=== PATIENT | male | born 1985 | race African-American/Black ===

== ENCOUNTER 2017-07-29 23:45 | Emergency (ER) | payer MEDICAID ==
[~2017-07-29] VITALS: Ht 188 cm; Wt 100.0 kg
[~2017-07-29 23:45] MED LIST: VIC
[2017-07-30] MEDS ORDERED: KETOROLAC 60MG/2ML VIAL IM ONE (01:15)
[2017-07-30 01:24] VITALS: BP 142/81
== END 2017-07-30 01:27 | disposition home or self-care (01) ==
LOC: ER 23:45
DX: S01.81XA Laceration without foreign body of other part of head, initial encounter (principal); W22.8XXA Striking against or struck by other objects, initial encounter; Y93.67 Activity, basketball; Y92.89 Other specified places as the place of occurrence of the external cause; M32.9 Systemic lupus erythematosus, unspecified; J45.909 Unspecified asthma, uncomplicated; M35.00 Sjogren syndrome, unspecified
CPT/HCPCS: 96372; 99283; J1885; Z7610

== ENCOUNTER 2018-12-30 17:32 | Emergency (ER) | payer MEDICAID ==
[~2018-12-30] VITALS: Ht 170.2 cm; Wt 70.0 kg
[2018-12-30] MEDS ORDERED: HYDROCODONE/ACETAMINOPHEN 5/325MG TABLET PO ONE (22:45)
[2018-12-31] MEDS ORDERED: KETOROLAC 30MG/ML VIAL IM ONE
[2018-12-31 00:28] VITALS: BP 136/78
== END 2018-12-31 00:29 | disposition home or self-care (01) ==
LOC: ER 17:32
DX: S30.0XXA Contusion of lower back and pelvis, initial encounter (principal); S10.93XA Contusion of unspecified part of neck, initial encounter; J45.909 Unspecified asthma, uncomplicated; V49.49XA Driver injured in collision with other motor vehicles in traffic accident, initial encounter; Y93.89 Activity, other specified; Y92.89 Other specified places as the place of occurrence of the external cause; Y99.8 Other external cause status
CPT/HCPCS: 71045; 72040; 72100; 96372; 99283; J1885; Z7610

== ENCOUNTER 2019-03-01 12:15 | Emergency (ER) | payer MEDICAID ==
[~2019-03-01] VITALS: Ht 188 cm; Wt 91.0 kg
[2019-03-01] MEDS ORDERED: LIDOCAINE HCL 1% 20ML VIAL (Pyxis) INJ INFIL ONE (14:30)
[2019-03-01] MEDS ORDERED: BACITRACIN ZINC OINT UDPKT TOP ONE (14:30)
[2019-03-01 16:07] VITALS: BP 128/86
== END 2019-03-01 15:24 | disposition home or self-care (01) ==
LOC: ER 12:15
DX: S81.811A Laceration without foreign body, right lower leg, initial encounter (principal); S81.812A Laceration without foreign body, left lower leg, initial encounter; J45.909 Unspecified asthma, uncomplicated; V19.49XA Pedal cycle driver injured in collision with other motor vehicles in traffic accident, initial encounter; Y93.19 Activity, other involving water and watercraft; Y92.89 Other specified places as the place of occurrence of the external cause; Y99.8 Other external cause status; M35.00 Sjogren syndrome, unspecified; M32.9 Systemic lupus erythematosus, unspecified
CPT/HCPCS: 12002; 99284; J3490

== ENCOUNTER 2023-09-25 20:55 | Emergency (ER) | payer MEDICAID, OTHER ==
[~2023-09-25] VITALS: Ht 188 cm; Wt 91.0 kg
[2023-09-25 22:18] VITALS: TEMP 98.2; O2SAT 98
[2023-09-25 23:01] VITALS: BP 139/93; PULSE 99; RESP 14
[2023-09-25] MEDS ORDERED: IBUPROFEN 600MG TABLET PO STA (23:01)
[2023-09-25] MEDS ORDERED: LIDOCAINE HCL/PF 1% 10 MG/ML 5ML VIAL INFIL ONE (23:15)
[2023-09-25] MEDS ORDERED: BACITRACIN ZINC OINT UDPKT TOP ONE (23:15)
[2023-09-25 23:40] LABS: BASOPHILS % 0.4 % (0.0-2.0); EOSINOPHILS % 0.7 % (0.0-5.0); HEMATOCRIT. 46.1 % (42.0-52.0); HEMOGLOBIN. 14.9 g/dL (14.0-18.0); LYMPHOCYTES % 32.5 % (20.0-50.0); MEAN CORPUSCULAR HEMOGLOBIN 29.5 pg (28.0-32.0); MEAN CORPUSCULAR HGB CONC 32.4 g/dL (31.0-37.0); MEAN CORPUSCULAR VOLUME 91.1 fL (80.0-94.0); MEAN PLATELET VOLUME 10.1 fl (7.4-10.4); NEUTROPHILS % 52.4 % (40.0-76.0); PLATELET 205 x1000/uL (130-400); RED BLOOD CELL COUNT 5.06 mill/uL (4.7-6.1); WHITE BLOOD COUNT 5.8 x1000/uL (4.5-11.0)
[2023-09-26 00:10] LABS: ALANINE AMINOTRANSFERASE 22 IU/L (10-49); ALBUMIN 4.5 g/dL (3.2-4.8); ASPARTATE AMINOTRANSFERASE 27 IU/L (<34); BILIRUBIN TOTAL 0.7 mg/dL (0.1-1.0); CALCIUM 9.7 mg/dL (8.7-10.4); CARBON DIOXIDE 27 mEq/L (21-32); CHLORIDE 103 mEq/L (98-107); CREATININE 0.8 mg/dL (0.6-1.3); GLUCOSE 84 mg/dL (70-105); POTASSIUM 4.1 mEq/L (3.5-5.1); PROTEIN TOTAL 8.3 g/dL (6.0-8.3); SODIUM 139 mEq/L (136-145); UREA NITROGEN BLOOD 16 mg/dL (9-23)
[2023-09-26] MEDS ORDERED: MUPI22OI2 TP (00:55)
[2023-09-26] MEDS ORDERED: SULF1TAB48 MT (00:55)
[2023-09-26] MEDS ORDERED: NAPR-681 MT (00:55)
[2023-09-26] MEDS ORDERED: CEPH500T MT (00:55)
== END 2023-09-26 01:09 | disposition home or self-care (01) ==
LOC: ER 20:55
DX: L03.012 Cellulitis of left finger (principal); R42 Dizziness and giddiness; J45.909 Unspecified asthma, uncomplicated
CPT/HCPCS: 99285; 71045; 80053; 85025; 36415; 93005; J3490